=== PATIENT | female | born 1935 | race Two or more races ===

== ENCOUNTER → 2016-12-22 | Outpatient (CLI) | payer MEDICARE, OTHER ==
[~2016-12-22] MED LIST: METO-327 PO; SIMV20TA6 PO
== END | disposition home or self-care (01) ==
LOC: RADPV 08:24
PROVIDERS: ATTEND Legal Medicine
DX: K76.0 Fatty (change of) liver, not elsewhere classified (principal)
CPT/HCPCS: 76700